=== PATIENT | male | born 1985 | race Caucasian/White ===

== ENCOUNTER 2016-11-07 13:16 | Inpatient (IN) | payer OTHER ==
[~2016-11-07] VITALS: Ht 190.5 cm; Wt 91.0 kg
[2016-11-07 14:30] VITALS: BP 138/70
[2016-11-07 14:34] VITALS: BP 138/70
[2016-11-07 14:43] LABS: BASO % 0.4 % (0.0-1.0); EOS # 0.2 10*3/uL (0.0-0.4); EOS % 2.9 % (1.0-4.0); HEMATOCRIT 32.2 % (42.0-52.0); LYMPH # 1.2 10*3/uL (1.3-4.4); LYMPH % 16.7 % (27.0-41.0); MEAN CELL VOLUME 85.6 fl (80.0-94.0); MEAN CORPUSCULAR HGB 29.3 pg (27.0-31.0); MEAN CORPUSCULAR HGB CONC 34.2 g/dl (33.0-37.0); MEAN PLATELET VOLUME 9.8 fl (9.6-12.3); MONO # 1.1 10*3/uL (0.1-1.0); MONO % 15.4 % (3.0-9.0); NEUT # 4.5 10*3/uL (2.3-7.9); NEUT % 64.2 % (47.0-73.0); PLATELET COUNT AUTOMATED 291 10*3/uL (130-400); RED BLOOD COUNT 3.76 10*6/uL (4.50-5.90); RED CELL DISTRI WIDTH 12.6 % (0-14.5)
[2016-11-07 14:55] LABS: INTERNATIONAL NORM RATIO 1.1 (2.0-3.5); PROTHROMBIN TIME 11.7 SECONDS (9.0-12.4)
[2016-11-07 15:00] LABS: ALBUMIN 3.2 gm/dl (3.1-4.5); ALKALINE PHOSPHATASE 69 U/L (45-117); BILIRUBIN, TOTAL 0.4 mg/dl (0.2-1.0); BUN 16 mg/dl (7-24); CARBON DIOXIDE 29 mmol/L (21-32); CHLORIDE 99 mmol/L (98-107); EST GLOM FILT AFRICAN AMERICAN > 60 ml/min; GLUCOSE 83 mg/dL (65-99); POTASSIUM 3.7 mmol/L (3.5-5.1); SGOT/AST 24 IU/L (3-35); SGPT/ALT 35 U/L (12-78); SODIUM 138 mmol/L (136-145); TOTAL PROTEIN 7.2 gm/dL (6.4-8.2)
[2016-11-07 15:06] LABS: BILIRUBIN NEGATIVE (NEGATIVE); BLOOD NEGATIVE (NEGATIVE); CLARITY CLOUDY (CLEAR); COLOR YELLOW (YELLOW); GLUCOSE NEGATIVE (NEGATIVE); KETONE NEGATIVE (NEGATIVE); LEUKO ESTERASE NEGATIVE (NEGATIVE); NITRITE NEGATIVE (NEGATIVE); PROTEIN NEGATIVE (NEGATIVE)
[2016-11-07 15:13] LABS: URINE AMPHETAMINES > 1000 (1000ng/ml); URINE BARBITURATES < 200 (200ng/ml); URINE COCAINE > 300 (300ng/ml)
[2016-11-07 15:18] LABS: CALCIUM OXALATE CRYSTALS TRACE; URINE REFLEX COMMENT NO (NO); WBC 0-2 wbc/hpf (0-5)
[2016-11-07] MEDS ORDERED: LISINOPRIL-HYDR1 TA1 PO ×2 (15:30→15:33)
[2016-11-07] MEDS ORDERED: PROZAC20 MG PO (15:32)
[2016-11-07] MEDS ORDERED: DOXEPIN HCL10 MG PO (15:33)
[2016-11-07] MEDS ORDERED: WELLBUTRIN XL150 MG PO (15:35)
[2016-11-07] MEDS ORDERED: CYCLOBENZAPRINE10 MG PO (15:36)
[2016-11-07] MEDS ORDERED: NEURONTIN600 MG PO (15:39)
[2016-11-07] MEDS ORDERED: SEROQUEL50 MG PO (15:41)
[2016-11-07] MEDS ORDERED: IBU800 MG PO (15:42)
[2016-11-07 16:00] VITALS: BP 130/71
[2016-11-07 20:00] VITALS: BP 123/65
[2016-11-08] VITALS: BP 108/59
[2016-11-08 04:00] VITALS: BP 102/70
[2016-11-08 08:00] VITALS: BP 110/63
[2016-11-08 12:00] VITALS: BP 97/54
[2016-11-08 16:00] VITALS: BP 130/53
[2016-11-08 20:00] VITALS: BP 129/51
[2016-11-09] VITALS: BP 123/58
[2016-11-09 08:00] VITALS: BP 96/54
[2016-11-09 16:00] VITALS: BP 92/50
[2016-11-09 20:00] VITALS: BP 113/52
[2016-11-10] VITALS: BP 97/55
[2016-11-10 06:14] LABS: HEMATOCRIT 33.7 % (42.0-52.0); HEMOGLOBIN 11.3 g/dl (14.0-18.0); MEAN CELL VOLUME 87.1 fl (80.0-94.0); MEAN CORPUSCULAR HGB 29.2 pg (27.0-31.0); MEAN CORPUSCULAR HGB CONC 33.5 g/dl (33.0-37.0); MEAN PLATELET VOLUME 9.6 fl (9.6-12.3); PLATELET COUNT AUTOMATED 260 10*3/uL (130-400); RED BLOOD COUNT 3.87 10*6/uL (4.50-5.90); RED CELL DISTRI WIDTH 12.7 % (0-14.5); WHITE BLOOD COUNT 4.3 10*3/uL (4.8-10.8)
[2016-11-10 06:31] LABS: EST GLOM FILT AFRICAN AMERICAN > 60 ml/min
[2016-11-10 06:41] LABS: EOSINOPHIL # 0.1 10*3/uL (0-0.4); EOSINOPHILS 3 % (1-4); LYMPHOCYTE # 1.5 10*3/uL (1.3-4.4); MONOCYTE # 0.8 10*3/uL (0.1-1.0); NEUTROPHIL # 1.8 10*3/uL (2.3-7.9); NEUTROPHILS 43 % (47-73); PLATELET SUFFICIENCY NORMAL (NORMAL); TOTAL CELLS COUNTED 100 #CELLS
[2016-11-10 08:00] VITALS: BP 113/51
[2016-11-10] MEDS ORDERED: NATURE'S BLEND F1 MG PO (09:00)
[2016-11-10] MEDS ORDERED: VITAMIN B-11 TAB PO (09:00)
[2016-11-10] MEDS ORDERED: THERA TABS1 TAB PO (09:00)
== END 2016-11-10 13:28 | disposition home or self-care (01) | DRG 897 ==
LOC: 5E 13:16
PROVIDERS: Internal Medicine; Internal Medicine Nephrology
DX: F11.23 Opioid dependence with withdrawal (principal); E44.0 Moderate protein-calorie malnutrition; I15.8 Other secondary hypertension; D49.1 Neoplasm of unspecified behavior of respiratory system; D64.9 Anemia, unspecified; F13.10 Sedative, hypnotic or anxiolytic abuse, uncomplicated; I73.00 Raynaud's syndrome without gangrene; F14.10 Cocaine abuse, uncomplicated; D72.810 Lymphocytopenia; D72.821 Monocytosis (symptomatic); Z85.47 Personal history of malignant neoplasm of testis; Z90.79 Acquired absence of other genital organ(s); Z68.25 Body mass index [BMI] 25.0-25.9, adult; Z87.81 Personal history of (healed) traumatic fracture; Z71.6 Tobacco abuse counseling; Z72.89 Other problems related to lifestyle; Z84.89 Family history of other specified conditions; Z82.49 Family history of ischemic heart disease and other diseases of the circulatory system; Z88.2 Allergy status to sulfonamides; Z88.0 Allergy status to penicillin; Z88.8 Allergy status to other drugs, medicaments and biological substances; Z79.899 Other long term (current) drug therapy; Z72.0 Tobacco use; Z92.21 Personal history of antineoplastic chemotherapy

== ENCOUNTER 2017-04-07 14:58 | Inpatient (IN) | payer OTHER ==
[~2017-04-07] VITALS: Ht 190.5 cm; Wt 90.9 kg
[~2017-04-07 14:58] MED LIST: CYCLOBENZAPRINE10 MG PO; DOXEPIN HCL10 MG PO; IBU800 MG PO; LISINOPRIL-HYDR1 TA1 PO; NATURE'S BLEND F1 MG PO; NEURONTIN600 MG PO; PROZAC20 MG PO; SEROQUEL50 MG PO; THERA TABS1 TAB PO; VITAMIN B-11 TAB PO; WELLBUTRIN XL150 MG PO
[2017-04-07 16:00] VITALS: BP 151/83
--- NOTE | 2017-04-07 16:17 | NUR ---
PATIENT MEETS [facility], CINA=20. PATIENT WANTS TO GO TO OUTPATIENT TREATMENT AT [facility] FOR HIS AFTERCARE PLAN. LACEY EDWARD B.A. [employer] CHIEF
[2017-04-07 16:20] LABS: BASO % 0.1 % (0.0-1.0); EOS # 0.1 10*3/uL (0.0-0.4); EOS % 0.9 % (1.0-4.0); HEMATOCRIT 45.2 % (42.0-52.0); HEMOGLOBIN 15.9 g/dl (14.0-18.0); LYMPH % 7.1 % (27.0-41.0); MEAN CELL VOLUME 84.6 fl (80.0-94.0); MEAN CORPUSCULAR HGB 29.8 pg (27.0-31.0); MEAN CORPUSCULAR HGB CONC 35.2 g/dl (33.0-37.0); MEAN PLATELET VOLUME 10.7 fl (9.6-12.3); MONO # 1.5 10*3/uL (0.1-1.0); MONO % 10.7 % (3.0-9.0); NEUT # 11.2 10*3/uL (2.3-7.9); NEUT % 80.9 % (47.0-73.0); PLATELET COUNT AUTOMATED 240 10*3/uL (130-400); RED BLOOD COUNT 5.34 10*6/uL (4.50-5.90); RED CELL DISTRI WIDTH 11.9 % (0-14.5); WHITE BLOOD COUNT 13.9 10*3/uL (4.8-10.8)
[2017-04-07 16:28] LABS: INTERNATIONAL NORM RATIO 1.1 (2.0-3.5)
[2017-04-07 16:34] LABS: ALBUMIN 3.8 gm/dl (3.1-4.5); ALKALINE PHOSPHATASE 66 U/L (45-117); BUN 17 mg/dl (7-24); CHLORIDE 96 mmol/L (98-107); SGOT/AST 21 IU/L (3-35); SGPT/ALT 27 U/L (12-78); SODIUM 133 mmol/L (136-145); TOTAL PROTEIN 7.6 gm/dL (6.4-8.2)
[2017-04-07 16:37] LABS: ETHYL ALCOHOL < 3.0 mg/dl (<3)
--- NOTE | 2017-04-07 16:57 | NUR ---
MSADMTime: N A 31 year old MALE admitted to under services of CARY MCCLAIN DO. Pt. arrived via ambulatory from [place]. Chief complaint: OPIATE WITHDRAWAL. MARIALUISA SMITH
[2017-04-07 20:00] VITALS: BP 127/61
--- NOTE | 2017-04-07 20:00 | NUR ---
ASSUMED CARE OF PATIENT. ASSESSMENT COMPLETE. RESTING IN BED. CALL LIGHT IN REACH. WILL CONTINUE TO MONITOR.
--- NOTE | 2017-04-07 20:39 | NUR ---
MEDICATED WITH PRN MOTRIN, FOR C/O HEADACHE AND LT HAND PAIN, VISTARIL FOR RESTLESSNESS, REQUIP FOR RESTLESS LEGS, SENOKOT FOR CONSTIPATION.
--- NOTE | 2017-04-07 22:11 | NUR ---
NICOTENE GUM GIVEN FOR URGE TO SMOKE.
--- NOTE | 2017-04-07 23:00 | NUR ---
MEDICATED WITH PRN TRAZADONE FOR HELP TO SLEEP.
[2017-04-07 23:13] LABS: BILIRUBIN NEGATIVE (NEGATIVE); BLOOD NEGATIVE (NEGATIVE); CLARITY CLEAR (CLEAR); COLOR YELLOW (YELLOW); GLUCOSE NEGATIVE (NEGATIVE); KETONE NEGATIVE (NEGATIVE); LEUKO ESTERASE NEGATIVE (NEGATIVE); NITRITE NEGATIVE (NEGATIVE); SPECIFIC GRAVITY <= 1.005 (1.005-1.030)
[2017-04-07 23:22] LABS: BACTERIA TRACE; EPITHELIAL CELLS 0-2; URINE AMPHETAMINES < 1000 (1000ng/ml); URINE BARBITURATES < 200 (200ng/ml); URINE BENZODIAZEPINES < 200 (200ng/ml); URINE CANNABINOIDS (THC) < 50 (50ng/ml); URINE COCAINE > 300 (300ng/ml); URINE METHADONE < 300 (300ng/ml); URINE OPIATES > 300 (300ng/ml); WBC 0-2 wbc/hpf (0-5)
[2017-04-07 23:25] LABS: URINE PHENCYCLIDINE < 25 (25ng/ml)
[2017-04-08] VITALS: BP 117/63
--- NOTE | 2017-04-08 02:00 | NUR ---
SLEEPING. NO DISTRESS NOTED. CALL LIGHT IN REACH. WILL CONTINUE TO MONITOR.
[2017-04-08 04:00] VITALS: BP 118/63
[2017-04-08 06:52] LABS: BASO % 0.5 % (0.0-1.0); EOS # 0.3 10*3/uL (0.0-0.4); HEMATOCRIT 40.4 % (42.0-52.0); HEMOGLOBIN 14.1 g/dl (14.0-18.0); LYMPH # 1.2 10*3/uL (1.3-4.4); LYMPH % 14.5 % (27.0-41.0); MEAN CELL VOLUME 85.4 fl (80.0-94.0); MEAN CORPUSCULAR HGB 29.8 pg (27.0-31.0); MEAN CORPUSCULAR HGB CONC 34.9 g/dl (33.0-37.0); MEAN PLATELET VOLUME 11.2 fl (9.6-12.3); MONO # 1.4 10*3/uL (0.1-1.0); MONO % 16.2 % (3.0-9.0); NEUT # 5.4 10*3/uL (2.3-7.9); NEUT % 64.6 % (47.0-73.0); PLATELET COUNT AUTOMATED 189 10*3/uL (130-400); RED BLOOD COUNT 4.73 10*6/uL (4.50-5.90); RED CELL DISTRI WIDTH 11.9 % (0-14.5); WHITE BLOOD COUNT 8.3 10*3/uL (4.8-10.8)
[2017-04-08 07:18] LABS: CHLORIDE 103 mmol/L (98-107); POTASSIUM 3.9 mmol/L (3.5-5.1); SODIUM 137 mmol/L (136-145)
[2017-04-08 07:33] LABS: ALBUMIN 3.5 gm/dl (3.1-4.5); ALKALINE PHOSPHATASE 61 U/L (45-117); BUN 16 mg/dl (7-24); CREATININE 1.03 mg/dL (0.70-1.30); SGOT/AST 14 IU/L (3-35); SGPT/ALT 22 U/L (12-78); TOTAL PROTEIN 6.4 gm/dL (6.4-8.2)
[2017-04-08 08:00] VITALS: BP 107/54
[2017-04-08 12:00] VITALS: BP 121/60
[2017-04-08 16:00] VITALS: BP 120/57
[2017-04-08 20:00] VITALS: BP 123/57
--- NOTE | 2017-04-08 23:23 | NUR ---
Patient reports the following symptoms of withdrawal: body aches, leg pain, nausea and cocaine cravings. Patient given scheduled/PRN medication to control withdrawal symptoms. Close observation will be maintained.
[2017-04-09] VITALS: BP 118/58
--- NOTE | 2017-04-09 00:25 | NUR ---
Patient resting quietly in bed with eyes closed. PRN medications effective. Will continue to monitor. Call light within reach.
--- NOTE | 2017-04-09 00:36 | NUR ---
24 HR chart check completed.
[2017-04-09 08:00] VITALS: BP 104/64
[2017-04-09 12:00] VITALS: BP 119/62
[2017-04-09 16:00] VITALS: BP 131/68
[2017-04-09 20:00] VITALS: BP 131/71
--- NOTE | 2017-04-09 20:23 | NUR ---
PATIENT RESTING QUIETLY IN BED. C/O BEING ACHY ALL OVER. ROBAXIN OFFERED AT THIS TIME BUT HE STATES HE WILL TAKE IT LATER WITH HIS SLEEPING PILL. HE IS A/O X3, PLEASANT AND COOPERATIVE WITH CARE. CALL DELFINO IN REACH. SEE ASSESSMENT.
--- NOTE | 2017-04-09 22:03 | NUR ---
Patient reports the following symptoms of withdrawal: body aches, leg pain, nausea and cravings. Patient given scheduled/PRN medication to control withdrawal symptoms. Close observation will be maintained.
--- NOTE | 2017-04-09 23:15 | NUR ---
Patient resting. Responding to scheduled medications with fewer complaints of pain and anxiety.
[2017-04-10] VITALS: BP 92/37
[2017-04-10 00:50] VITALS: BP 101/47
--- NOTE | 2017-04-10 01:11 | NUR ---
PATIENT SLEEPING, NO SXS OF DISTRESS. VANCO RUNNING ORDERED. RESPIRATIONS EASY/REG. CALL LIGHT IN REACH.
--- NOTE | 2017-04-10 04:12 | NUR ---
SLEEPING, NO SXS OF DISTRESS. CALL LIGHT IN REACH. ABX INFUSING ORDERED
--- NOTE | 2017-04-10 07:30 | NUR ---
Patient resting quietly with no c/o discomfort. Respirations easy and regular. Vital signs stable. No overt distress. CHICHI PAYNE
[2017-04-10 08:00] VITALS: BP 117/60
--- NOTE | 2017-04-10 08:45 | NUR ---
PT AWAKE. ASSESSMENT COMPLETE. ROUTINE MEDICATIONS TOLERATED WELL. NO COMPLAINTS AT THIS TIME.
[2017-04-10 12:00] VITALS: BP 122/67
[2017-04-10 16:00] VITALS: BP 128/62
--- NOTE | 2017-04-10 17:00 | NUR ---
Patient reports the following symptoms of withdrawal: body aches, leg pain, and anxiety. Patient given scheduled/PRN medication to control withdrawal symptoms. Close observation will be maintained.
--- NOTE | 2017-04-10 17:41 | NUR ---
Patient resting. Responding to scheduled medications with fewer complaints of pain and anxiety.
--- NOTE | 2017-04-10 20:00 | NUR ---
ASSUMED CARE OF PATIENT. ASSESSMENT COMPLETE. RESTING IN BED. NO COMPLAINTS. CALL LIGHT IN REACH. WILL CONTINUE TO MONITOR.
--- NOTE | 2017-04-10 21:35 | NUR ---
MEDICATED WITH PRN MOTRIN FOR C/O LEFT HAND PAIN. RATES 10/28.
[2017-04-10 21:54] VITALS: BP 109/46
--- NOTE | 2017-04-10 22:30 | NUR ---
PT STATES EARLIER MOTRIN HELPING,
--- NOTE | 2017-04-10 22:42 | NUR ---
MEDICATED WITH PRN REQUIP, ROBAXIN, VISTARIL, AND TRAZADONE FOR C/O RESTLESS LEGS, MUSCLE ACHES, ANXIETY, AND HELP TO SLEEP
[2017-04-11] VITALS: BP 125/64
--- NOTE | 2017-04-11 02:17 | NUR ---
SLEEPING. NO DISTRESS NOTED. CALL LIGHT IN REACH. WILL CONTINUE TO MONITOR.
[2017-04-11 06:39] LABS: BASO % 0.5 % (0.0-1.0); EOS # 0.4 10*3/uL (0.0-0.4); EOS % 8.3 % (1.0-4.0); HEMATOCRIT 40.8 % (42.0-52.0); LYMPH # 1.4 10*3/uL (1.3-4.4); LYMPH % 31.3 % (27.0-41.0); MEAN CELL VOLUME 86.3 fl (80.0-94.0); MEAN CORPUSCULAR HGB 29.6 pg (27.0-31.0); MEAN CORPUSCULAR HGB CONC 34.3 g/dl (33.0-37.0); MEAN PLATELET VOLUME 10.5 fl (9.6-12.3); MONO # 0.6 10*3/uL (0.1-1.0); MONO % 12.7 % (3.0-9.0); PLATELET COUNT AUTOMATED 212 10*3/uL (130-400); RED BLOOD COUNT 4.73 10*6/uL (4.50-5.90); RED CELL DISTRI WIDTH 11.8 % (0-14.5); WHITE BLOOD COUNT 4.3 10*3/uL (4.8-10.8)
[2017-04-11 07:04] LABS: BUN 12 mg/dl (7-24); CREATININE 0.99 mg/dL (0.70-1.30)
[2017-04-11 08:00] VITALS: BP 100/58
[2017-04-11 12:00] VITALS: BP 125/60
[2017-04-11] MEDS ORDERED: ATARAX,VISTARIL50 MG PO (12:06)
[2017-04-11] MEDS ORDERED: METHOCARBAMOL750 M1 PO (12:06)
[2017-04-11] MEDS ORDERED: ROPINIROLE HYD0.5 MG PO (12:06)
[2017-04-11] MEDS ORDERED: TRAZODONE50 MG PO (12:06)
[2017-04-11] MEDS ORDERED: DOXYCYCLINE100 M3 PO (12:06)
--- NOTE | 2017-04-11 13:24 | NUR ---
Patient resting quietly with no c/o discomfort. Respirations easy and regular. Vital signs stable. No overt distress. SANTIAGO GOODSON R
--- NOTE | 2017-04-11 13:52 | NUR ---
Discharge instructions reviewed with patient/family. Patient receptive and verbalizes understanding. Follow-up care arranged. Written instructions given to patient/family. SANTIAGO GOODSON
== END 2017-04-11 13:52 | disposition home or self-care (01) | DRG 872 ==
LOC: 4E 14:58
PROVIDERS: Internal Medicine; ADMIT Emergency Medicine
DX: A41.9 Sepsis, unspecified organism (principal); E87.1 Hypo-osmolality and hyponatremia; F11.23 Opioid dependence with withdrawal; L03.114 Cellulitis of left upper limb; L03.115 Cellulitis of right lower limb; I10 Essential (primary) hypertension; R33.9 Retention of urine, unspecified; G47.00 Insomnia, unspecified; F43.10 Post-traumatic stress disorder, unspecified; F32.9 Major depressive disorder, single episode, unspecified; F41.9 Anxiety disorder, unspecified; F14.10 Cocaine abuse, uncomplicated; K59.00 Constipation, unspecified; M60.842 Other myositis, left hand; M65.9 Synovitis and tenosynovitis, unspecified; Z79.899 Other long term (current) drug therapy; Z85.118 Personal history of other malignant neoplasm of bronchus and lung; Z87.820 Personal history of traumatic brain injury; Z88.0 Allergy status to penicillin; Z88.2 Allergy status to sulfonamides; Z88.8 Allergy status to other drugs, medicaments and biological substances; Z72.0 Tobacco use; Z92.21 Personal history of antineoplastic chemotherapy; Z82.49 Family history of ischemic heart disease and other diseases of the circulatory system; Z85.47 Personal history of malignant neoplasm of testis

== ENCOUNTER 2017-04-14 14:11 | Emergency (ER) | payer OTHER ==
[~2017-04-14] VITALS: Ht 190.5 cm; Wt 90.7 kg
[~2017-04-14 14:11] MED LIST changes: +ATARAX,VISTARIL50 MG PO; +DOXYCYCLINE100 M3 PO; +METHOCARBAMOL750 M1 PO; +ROPINIROLE HYD0.5 MG PO; +TRAZODONE50 MG PO
[2017-04-14 14:58] LABS: BILIRUBIN NEGATIVE (NEGATIVE); BLOOD TRACE-INTACT (NEGATIVE); CLARITY SL CLOUDY (CLEAR); COLOR YELLOW (YELLOW); GLUCOSE NEGATIVE (NEGATIVE); KETONE 1+ (NEGATIVE); LEUKO ESTERASE NEGATIVE (NEGATIVE); NITRITE NEGATIVE (NEGATIVE); SPECIFIC GRAVITY 1.025 (1.005-1.030); UROBILINOGEN 0.2 E.U./dl (0.2-1.0)
[2017-04-14 15:05] LABS: BASO % 0.4 % (0.0-1.0); EOS # 0.1 10*3/uL (0.0-0.4); EOS % 0.9 % (1.0-4.0); HEMATOCRIT 46.3 % (42.0-52.0); HEMOGLOBIN 16.2 g/dl (14.0-18.0); LYMPH # 1.4 10*3/uL (1.3-4.4); LYMPH % 14.8 % (27.0-41.0); MEAN CELL VOLUME 85.1 fl (80.0-94.0); MEAN CORPUSCULAR HGB 29.8 pg (27.0-31.0); MEAN PLATELET VOLUME 10.2 fl (9.6-12.3); MONO % 10.7 % (3.0-9.0); NEUT # 6.8 10*3/uL (2.3-7.9); PLATELET COUNT AUTOMATED 303 10*3/uL (130-400); RED BLOOD COUNT 5.44 10*6/uL (4.50-5.90); RED CELL DISTRI WIDTH 11.7 % (0-14.5); WHITE BLOOD COUNT 9.3 10*3/uL (4.8-10.8)
[2017-04-14 15:06] LABS: URINE AMPHETAMINES < 1000 (1000ng/ml); URINE BARBITURATES < 200 (200ng/ml); URINE BENZODIAZEPINES < 200 (200ng/ml); URINE CANNABINOIDS (THC) < 50 (50ng/ml); URINE COCAINE > 300 (300ng/ml); URINE METHADONE < 300 (300ng/ml); URINE OPIATES > 300 (300ng/ml)
[2017-04-14 15:09] LABS: URINE PHENCYCLIDINE < 25 (25ng/ml)
[2017-04-14 15:14] LABS: MUCOUS TRACE; RBC 0-2 rbc/hpf (0-2)
[2017-04-14 15:22] LABS: ALBUMIN 4.6 gm/dl (3.1-4.5); ALKALINE PHOSPHATASE 76 U/L (45-117); BUN 30 mg/dl (7-24); CHLORIDE 95 mmol/L (98-107); CREATININE 1.24 mg/dL (0.70-1.30); LIPASE 331 U/L (73-393); POTASSIUM 3.8 mmol/L (3.5-5.1); SGOT/AST 47 IU/L (3-35); SGPT/ALT 34 U/L (12-78); SODIUM 133 mmol/L (136-145); TOTAL PROTEIN 8.8 gm/dL (6.4-8.2)
[2017-04-14] MEDS ORDERED: CLINDAMYCIN HC300 MG PO ×2 (15:55→16:10)
[2017-04-14] MEDS ORDERED: ZOFRAN ODT4 MG SL (16:10)
== END 2017-04-14 15:57 | disposition home or self-care (01) ==
LOC: ED 14:11
PROVIDERS: Physician Assistant
DX: L03.114 Cellulitis of left upper limb (principal); F17.200 Nicotine dependence, unspecified, uncomplicated; F10.10 Alcohol abuse, uncomplicated; Z88.2 Allergy status to sulfonamides; Z88.0 Allergy status to penicillin; Z88.8 Allergy status to other drugs, medicaments and biological substances; Z90.89 Acquired absence of other organs

== ENCOUNTER 2017-08-29 23:40 | Inpatient (IN) | payer OTHER ==
[~2017-08-29] VITALS: Ht 190.5 cm; Wt 86.4 kg
[~2017-08-29 23:40] MED LIST changes: +CLINDAMYCIN HC300 MG PO; +ZOFRAN ODT4 MG SL
[2017-08-29 23:45] VITALS: BP 150/81
[2017-08-30 00:28] LABS: BILIRUBIN NEGATIVE (NEGATIVE); BLOOD NEGATIVE (NEGATIVE); CLARITY CLEAR (CLEAR); COLOR YELLOW (YELLOW); GLUCOSE NEGATIVE (NEGATIVE); KETONE NEGATIVE (NEGATIVE); LEUKO ESTERASE NEGATIVE (NEGATIVE); NITRITE NEGATIVE (NEGATIVE); SPECIFIC GRAVITY >= 1.030 (1.005-1.030); UROBILINOGEN 0.2 E.U./dl (0.2-1.0)
[2017-08-30 00:32] LABS: BASO % 0.5 % (0.0-1.0); EOS # 0.2 10*3/uL (0.0-0.4); EOS % 3.9 % (1.0-4.0); HEMATOCRIT 40.3 % (42.0-52.0); HEMOGLOBIN 13.1 g/dl (14.0-18.0); LYMPH # 1.1 10*3/uL (1.3-4.4); LYMPH % 25.5 % (27.0-41.0); MEAN CELL VOLUME 88.6 fl (80.0-94.0); MEAN CORPUSCULAR HGB 28.8 pg (27.0-31.0); MEAN CORPUSCULAR HGB CONC 32.5 g/dl (33.0-37.0); MEAN PLATELET VOLUME 10.2 fl (9.6-12.3); MONO # 0.4 10*3/uL (0.1-1.0); MONO % 8.5 % (3.0-9.0); NEUT # 2.7 10*3/uL (2.3-7.9); NEUT % 61.6 % (47.0-73.0); PLATELET COUNT AUTOMATED 192 10*3/uL (130-400); RED BLOOD COUNT 4.55 10*6/uL (4.50-5.90); RED CELL DISTRI WIDTH 12.1 % (0-14.5); WHITE BLOOD COUNT 4.4 10*3/uL (4.8-10.8)
[2017-08-30 00:33] LABS: ALBUMIN 3.8 gm/dl (3.1-4.5); ALKALINE PHOSPHATASE 78 U/L (45-117); BUN 15 mg/dl (7-24); CHLORIDE 105 mmol/L (98-107); CREATININE 1.03 mg/dL (0.70-1.30); POTASSIUM 3.6 mmol/L (3.5-5.1); SGOT/AST 18 IU/L (3-35); SGPT/ALT 18 U/L (12-78); SODIUM 140 mmol/L (136-145); TOTAL PROTEIN 7.7 gm/dL (6.4-8.2)
[2017-08-30 00:35] LABS: ACETAMINOPHEN (TYLENOL) < 2.0 ug/ml (10-30); ETHYL ALCOHOL < 3.0 mg/dl (<3)
[2017-08-30 00:37] LABS: RBC 0-2 rbc/hpf (0-2)
[2017-08-30 00:38] LABS: URINE AMPHETAMINES < 1000 (1000ng/ml); URINE BARBITURATES < 200 (200ng/ml); URINE BENZODIAZEPINES < 200 (200ng/ml); URINE CANNABINOIDS (THC) < 50 (50ng/ml); URINE COCAINE > 300 (300ng/ml); URINE METHADONE > 300 (300ng/ml); URINE OPIATES > 300 (300ng/ml)
[2017-08-30 00:41] LABS: URINE PHENCYCLIDINE < 25 (25ng/ml)
[2017-08-30 00:56] VITALS: BP 126/80
[2017-08-30 01:24] LABS: LIPASE 120 U/L (73-393)
[2017-08-30 01:50] VITALS: BP 126/66
[2017-08-30] MEDS ORDERED: NEURONTIN800 MG PO (02:14)
[2017-08-30] MEDS ORDERED: SEROQUEL100 MG PO (02:15)
[2017-08-30] MEDS ORDERED: ZANAFLEX4 M1 PO (02:15)
[2017-08-30] MEDS ORDERED: IBU800 MG PO (02:15)
[2017-08-30] MEDS ORDERED: METHADONE10 MG/5 M1 PO (02:20)
[2017-08-30 08:00] VITALS: BP 140/87
[2017-08-30 12:00] VITALS: BP 138/86
[2017-08-30 16:00] VITALS: BP 128/70
[2017-08-30 20:00] VITALS: BP 116/62
[2017-08-31] VITALS: BP 116/70; BP 145/86
[2017-08-31 08:00] VITALS: BP 116/65
[2017-08-31 16:00] VITALS: BP 105/54
[2017-08-31 20:14] VITALS: BP 122/67
[2017-09-01] VITALS: BP 122/88; BP 96/60
[2017-09-01 04:00] VITALS: BP 156/78
[2017-09-01 05:00] VITALS: BP 114/65
[2017-09-01 08:00] VITALS: BP 90/50
[2017-09-01 12:00] VITALS: BP 94/60
[2017-09-01 16:00] VITALS: BP 109/52
== END 2017-09-01 20:05 | disposition left against medical advice (07) | DRG 894 ==
LOC: ED 23:40 → 5E 08-30 00:37 → EDHOLD 08-30 00:37 → 5E 08-30 00:53
PROVIDERS: Internal Medicine; Student in an Organized Health Care Education/Training Program
DX: F11.23 Opioid dependence with withdrawal (principal); D64.9 Anemia, unspecified; D72.819 Decreased white blood cell count, unspecified; M79.1 Myalgia; I73.00 Raynaud's syndrome without gangrene; F14.10 Cocaine abuse, uncomplicated; Z53.21 Procedure and treatment not carried out due to patient leaving prior to being seen by health care provider; F41.9 Anxiety disorder, unspecified; I10 Essential (primary) hypertension; Z79.899 Other long term (current) drug therapy; Z72.0 Tobacco use; Z71.6 Tobacco abuse counseling; Z88.0 Allergy status to penicillin; Z88.2 Allergy status to sulfonamides; Z88.8 Allergy status to other drugs, medicaments and biological substances; Z82.49 Family history of ischemic heart disease and other diseases of the circulatory system